=== PATIENT | female | born 1960 | race Caucasian/White ===

== ENCOUNTER → 2017-07-19 | Outpatient (CLI) | payer BC ==
--- NOTE | 2017-07-19 15:14 | KCIC ---
Ultrasound of the urinary bladder HISTORY: Incontinence. FINDINGS: Urinary bladder prevoid volume is 339.4 cc. The postvoid volume is 28.6 cc. Bilateral ureteric jets are documented. End of report Electronically signed by: Bo Haider MD (07/19/2017 3:11 PM) [facility]
== END | disposition home or self-care (01) ==
LOC: KCIC US 13:50
PROVIDERS: ATTEND Family Medicine
DX: R32 Unspecified urinary incontinence (principal)
CPT/HCPCS: 76857

== ENCOUNTER → 2018-06-09 | Outpatient (CLI) | payer BC ==
--- NOTE | 2018-06-09 16:09 | KCIC ---
MRI of the lumbar spine without contrast 06/09/2018 CLINICAL HISTORY: Low back pain for last several weeks. TECHNIQUE: Unenhanced T1-weighted and T2-weighted sagittal and axial and inversion recovery sagittal images of the lumbar spine were obtained. FINDINGS: Very mild S-shaped curvature of the thoracolumbar spine is seen. Degenerative signal changes are seen involving all of the disks of the lumbar spine. Degenerative signal changes are seen within the marrow surrounding these discs. The conus medullaris is normal morphology, position, and signal characteristics. On the axial images throughout the lumbar disc spaces, the changes of degenerative disc disease are seen. These consist of minimal to mild generalized disc bulges, degenerative changes involving the facet joints and mild to moderate ligamentum flavum hypertrophy. These findings do not result in significant central spinal canal or neural foraminal stenosis at any level. IMPRESSION: The changes of degenerative disc disease are seen involving the lumbar spine. These findings do not result in significant central spinal canal or neural foraminal stenosis. Electronically signed by: Joseph Germain MD (06/09/2018 4:06 PM) [id number]
== END | disposition home or self-care (01) ==
LOC: KCIC MRI 13:30
PROVIDERS: ATTEND Chiropractor
DX: M51.36 Other intervertebral disc degeneration, lumbar region (principal)
CPT/HCPCS: 72148